=== PATIENT | female | born 1985 | race Two or more races ===

== ENCOUNTER 2024-04-16 20:40 | Emergency (ER) | payer BC, SELFPAY ==
[2024-04-16 20:47] VITALS: BP 165/111
[2024-04-16 21:01] LABS: % Basophils 0.5 % (0-2); % Eosinophils 1.6 % (0-6); % Immature Granulocytes 0.3 % (0-0.5); % Lymphocytes 19.7 % (20.5-51.1); % Monocytes 6.4 % (1.7-9.3); % Neutrophils 71.5 % (42.2-75.2); Absolute Eosinophils 0.1 10^3/uL (0-0.7); Absolute Lymphocytes 1.3 10^3/uL (1.2-3.4); Absolute Monocytes 0.4 10^3/uL (0.1-0.6); Absolute Neutrophils 4.6 10^3/uL (1.4-6.5); Hematocrit 36.7 % (37.0-47.0); Hemoglobin 13.2 g/dL (12.0-16.0); Mean Corpuscular Hgb 30.5 pg (27.0-31.0); Mean Corpuscular Volume 84.8 fL (81.0-99.0); Mean Platelet Volume 10.1 fL (7.4-10.4); Nucleated Red Blood Cells % 0 %; Platelet Count 231 10^3/uL (130-400); Red Blood Cell Count 4.33 10^6/uL (4.20-5.40); Red Cell Dist. Width 11.5 % (11.5-14.5); White Blood Cell Count 6.4 10^3/uL (4.8-10.8)
[2024-04-16 21:10] VITALS: BP 137/93
[2024-04-16 21:25] LABS: ALT (SGPT) 34 U/L (0-35); AST (SGOT) 32 U/L (14-36); Albumin 4.8 g/dl (3.5-5.0); Alkaline Phosphatase 92 U/L (38-126); Blood Urea Nitrogen 13 mg/dl (7-17); Calcium 9.9 mg/dl (8.4-10.2); Carbon Dioxide 28 mmol/L (22-30); Chloride 101 mmol/L (98-107); Glucose 104 mg/dl (70-99); Potassium 3.5 mmol/L (3.5-5.1); Sodium 139 mmol/L (135-145); Total Bilirubin 0.4 mg/dl (0.2-1.3); Total Protein 7.8 g/dl (6.3-8.2); eGFR > 60.00
[2024-04-16 21:29] LABS: Troponin I < 0.012 ng/ml
[2024-04-16 22:00] VITALS: BP 140/89
--- NOTE | 2024-04-16 22:43 | ED.GENMED ---
History of Present Illness
General
Chief Complaint: Blood Pressure Problem
Time Seen by Provider: 04/16/24 22:02
History of Present Illness
History of Present Illness:
39-year-old female with no significant past medical history presenting to the emergency department for concern of elevated blood pressure. Patient reports for the past few days she has had a headache. She reports in prior pregnancies she has had
elevated blood pressure, had been on labetalol. She has since been taken off the medication after blood pressure improved and resolved. She checked her blood pressure today, noted that it was elevated which prompted her to come to the hospital.
Denies chest pain or difficulty breathing. Denies visual changes. Denies abdominal pain or vomiting. Denies focal weakness or sensory deficits to her extremities. Does note history of migraines. Does also report increased stress. Denies
additional acute medical complaints
Phy Exam
Physical Exam
Physical Exam:
General: Well-appearing, no clinical signs of dehydration, nontoxic and in no acute distress
HEENT: protecting airway
Neck: appears supple
CV: Normal heart rate, regular rhythm, no evidence of cyanosis
Resp: No accessory muscle use, no increased work of breathing, lungs clear to auscultation bilaterally
Abd: Soft and non-distended, no tenderness to palpation, normal bowel sounds
Extremities: No deformities, no swelling, no erythema
Neuro: alert, no focal neurologic deficit
: deferred
Rectal: deferred
Psych: Normal affect
Skin: Intact
Course
Orders/Labs/Results
Orders:
Orders
04/16/24 20:49
Electrocardiogram (*1) Urgent
Reason for Study: Other
Other Reason for Exam: high bp
EKG- Treatment ONCE
04/16/24 20:55
Complete Blood Count/With Diff Urgent
Comprehensive Metabolic Panel Urgent
Troponin I Urgent
04/16/24 22:30
Ketorolac [Toradol] 15 mg IM NOW STA
Abnormal Lab Results
04/16/24
20:55
Hct 36.7 L %
(37.0-47.0)
Lymphocytes % 19.7 L %
(20.5-51.1)
Glucose 104 H mg/dl
(70-99)
04/16/24 20:55
04/16/24 20:55
Vital Signs
Initial and Last Documented VS:
Initial Vital Signs
Temp Pulse Resp BP Pulse Ox
97.8 F 70 19 165/111 100
04/16/24 20:47 04/16/24 20:47 04/16/24 20:47 04/16/24 20:47 04/16/24 20:47
Last Documented Vital Signs
Temp Pulse Resp BP Pulse Ox
97.8 F 70 19 165/111 100
04/16/24 20:47 04/16/24 20:47 04/16/24 20:47 04/16/24 20:47 04/16/24 20:47
MDM/Problems Addressed
MDM/Problems Addressed:
39-year-old female without significant past medical history presenting for concern of headache and high blood pressure. Vital signs on arrival significant for high blood pressure.
On exam, patient well-appearing, resting comfortably, no acute comfort. Benign cardiac and pulmonary exam, no focal neurologic deficits. Patient had nursing protocol placed prior to my assessment with EKG and laboratory analysis. EKG nonischemic
and laboratory analysis without any end organ dysfunction. Blood pressure has improved as well without any intervention, without concern for hypertensive urgency or emergency. Suspect headache is tension versus migrainous in quality. Again no
focal neurologic deficits or concern for central neurologic process. Patient afebrile, nontoxic, no meningismus without concern for infectious process. Given that blood pressure has improved, do not feel that patient requires any antihypertensive
medications at this time, however explained importance of close interval follow-up with PCP for blood pressure recheck and potential initiation of medical therapy. Will treat patient with Toradol for headache. Otherwise feel stable for discharge
with continued outpatient PCP follow-up. Return precautions discussed and patient verbalized understanding
*EKG
Interpreted by ED Provider?: Yes
EKG Intrepretation Date: 04/16/24
EKG Intrepretation Time: 22:49
Interpretation: normal
Comparison EKG: no comparison EKG present
Heart Rate: 71
Rate: normal
Rhythm: sinus
[place]: normal axis
Interval: normal interval
QRS Pattern: normal QRS
Ischemia: non-specific ST changes
*Critical Care Note
Total Time (30-74mins, 75-104mins- exclusive of procedures): Not Applicable
ED Attending Note
-
Portions of this chart may have been created with voice recognition software.� Occasional wrong word or��sound alike� substitutions may have occurred due to the inherent limitations of voice recognition software.
Discharge Plan
Departure
Referrals:
Kierra Ward CRNP [Family Provider] -
Discharge Date and Time
Print Language: BRITISH
[2024-04-16] MEDS: TORADOL 15 MG IM (22:47)
== END 2024-04-16 23:55 | disposition home or self-care (01) ==
LOC: EMR 20:40
PROVIDERS: Emergency Medicine; EMERGENCY PHYSICIAN Student in an Organized Health Care Education/Training Program; FAMILY PHYSICIAN Nurse Practitioner Family
DX: R03.0 Elevated blood-pressure reading, without diagnosis of hypertension (principal); R51.9 Headache, unspecified; Z73.3 Stress, not elsewhere classified
CPT/HCPCS: 99284; 96372; 80053; 84484; 85025; 93005